=== PATIENT | female | born 1945 | race African-American/Black ===

== ENCOUNTER 2020-09-07 09:19 | Inpatient (IN) | payer MEDICARE, OTHER ==
[~2020-09-07] VITALS: Ht 167.6 cm; Wt 127.5 kg
[~2020-09-07 09:19] MED LIST: AMLODIPINE; ASACOL; ASPIRIN PO; ATORVASTATIN PO; BENTYL; CHLORTHALIDONE; CYMBALTA PO; DEXILANT; DOCUSATE; DONNATAL; FLUTICASONE; GABAPENTIN; ISOSORBIDE; LOSARTAN; MECLIZINE; METOPROLOL; NAPROXEN; OMEPRAZOLE; ONDANSETRON; PROAIR; RANITIDINE
[2020-09-07] MEDS ORDERED: HYDROCODONE/ACETAMINOPHEN 5/325MG TABLET PO STA (09:46)
[2020-09-07] MEDS ORDERED: SODIUM CHLORIDE 0.9% 1,000 ML IV ONE (10:00)
[2020-09-07 10:52] LABS: BASOPHILS % 0.4 % (0.0-2.0); EOSINOPHILS % 0.1 % (0.0-5.0); HEMATOCRIT. 35.1 % (36.0-48.0); HEMOGLOBIN. 11.2 g/dL (12.0-16.0); LYMPHOCYTES % 9.8 % (20.0-50.0); MEAN CORPUSCULAR HEMOGLOBIN 27.2 pg (28.0-32.0); MEAN CORPUSCULAR VOLUME 84.9 fL (81.0-99.0); MEAN PLATELET VOLUME 9.7 fl (7.4-10.4); MONOCYTES % 6.6 % (2.0-8.0); NEUTROPHILS % 83.1 % (40.0-76.0); PLATELET 115 x1000/uL (130-400); RED BLOOD CELL COUNT 4.13 mill/uL (4.2-5.4); RED CELL DISTRIBUTION WIDTH 18.8 % (11.6-14.6)
[2020-09-07 10:57] LABS: CHLORIDE 109 mEq/L (98-107)
[2020-09-07 11:02] LABS: INR 1.1; PROTHROMBIN TIME 11.3 sec (9.6-11.0)
[2020-09-07 11:08] LABS: CREATINE KINASE 132 IU/L (26-192)
[2020-09-07] MEDS ORDERED: GADOTERATE MEGLUMINE 5 MMOL/10 ML VIAL IV ONE (15:31)
[2020-09-07] MEDS ORDERED: CARVEDILOL 3.125 MG TABLET PO NR (16:45)
[2020-09-07] MEDS ORDERED: DEXAMETHASONE 10 MG/ML VIAL IV ONE (17:15)
[2020-09-07] MEDS ORDERED: HYDROCODONE/ACETAMINOPHEN 5/325MG TABLET PO ONE (18:30)
[2020-09-07] MEDS: MORPHINE SULFATE 2 MG/ML CPJ (NOT FOR IM USE) IV PRN (19:52)
[2020-09-07] MEDS ORDERED: MANNITOL 20% 250 ML IV NR (20:00)
[2020-09-07] MEDS ORDERED: MANNITOL 20% (20GM/100ML) BAG 500ML PREMIX IV ONE (20:00)
[2020-09-07] MEDS ORDERED: NICARDIPINE 100 MG in SODIUM CHLORIDE 0.9% 60 ML IV PRN (20:00)
[2020-09-07] MEDS: NICARDIPINE 100 MG in SODIUM CHLORIDE 0.9% 60 ML IV PRN (20:14)
[2020-09-07] MEDS: DEXT 5%/LACTATED RINGERS 1,000 ML IV SCH (20:45)
[2020-09-07] MEDS ORDERED: LEVETIRACETAM 500MG PREMIX 100 ML IV SCH (21:00)
[2020-09-08] VITALS (59 sets, daily range): BP systolic 110–164; BP diastolic 53–93
[2020-09-08] MEDS: DEXAMETHASONE 4MG/ML 1ML VIAL IV SCH ×4 (00:27→17:10)
[2020-09-08] MEDS: MORPHINE SULFATE 2 MG/ML CPJ (NOT FOR IM USE) IV PRN ×4 (00:41→18:45)
[2020-09-08] MEDS: HYDRALAZINE 20MG/ML VIAL IV PRN (10:18)
[2020-09-08] MEDS: LEVETIRACETAM 500MG PREMIX 100 ML IV SCH ×2 (11:30→20:33)
[2020-09-08 15:52] LABS: BASOPHILS % 0.2 % (0.0-2.0); HEMATOCRIT. 36.6 % (36.0-48.0); HEMOGLOBIN. 11.8 g/dL (12.0-16.0); LYMPHOCYTES % 10.3 % (20.0-50.0); MEAN CORPUSCULAR HEMOGLOBIN 27.4 pg (28.0-32.0); MEAN CORPUSCULAR VOLUME 84.9 fL (81.0-99.0); MEAN PLATELET VOLUME 10.3 fl (7.4-10.4); MONOCYTES % 1.9 % (2.0-8.0); NEUTROPHILS % 87.6 % (40.0-76.0); PLATELET 120 x1000/uL (130-400); RED BLOOD CELL COUNT 4.31 mill/uL (4.2-5.4); RED CELL DISTRIBUTION WIDTH 19.6 % (11.6-14.6)
[2020-09-08 16:04] LABS: CHLORIDE 110 mEq/L (98-107)
[2020-09-08] MEDS: NICARDIPINE 100 MG in SODIUM CHLORIDE 0.9% 60 ML IV PRN (16:06)
[2020-09-08] MEDS: DEXT 5%/LACTATED RINGERS 1,000 ML IV SCH (17:02)
[2020-09-08] MEDS ORDERED: POTASSIUM CHLORIDE 20MEQ TABLET SR PO SCH (22:30)
[2020-09-08] MEDS ORDERED: DICL100G31 TP (22:32)
[2020-09-08] MEDS ORDERED: ISOS30TA91 PO (22:32)
[2020-09-08] MEDS ORDERED: FLUT16SP15 BOTHNSTRLS (22:32)
[2020-09-08] MEDS ORDERED: PREG75CA75 PO (22:32)
[2020-09-08] MEDS ORDERED: NIFE90TA60 PO (22:32)
[2020-09-08] MEDS ORDERED: LOSA100T32 PO (22:32)
[2020-09-08] MEDS ORDERED: DULO30CA52 PO (22:32)
[2020-09-08] MEDS ORDERED: TIZA4TAB5 PO (22:32)
[2020-09-08] MEDS ORDERED: APIX5TAB PO (22:32)
[2020-09-08] MEDS ORDERED: COM10 PO (22:32)
[2020-09-08] MEDS ORDERED: ATOR-2 PO (22:32)
[2020-09-08] MEDS ORDERED: CARV3.1242 PO (22:32)
[2020-09-08] MEDS ORDERED: MIRT15TA6 PO (22:32)
[2020-09-08] MEDS ORDERED: CLON1TAB12 PO (22:32)
[2020-09-08] MEDS ORDERED: PRIL20 PO (22:32)
[2020-09-08] MEDS ORDERED: FURO20TA4 PO (22:32)
[2020-09-09] VITALS (95 sets, daily range): BP systolic 101–173; BP diastolic 53–112
[2020-09-09] MEDS: DEXAMETHASONE 4MG/ML 1ML VIAL IV SCH ×4 (00:15→17:12)
[2020-09-09] MEDS: MORPHINE SULFATE 2 MG/ML CPJ (NOT FOR IM USE) IV PRN ×5 (00:39→18:22)
[2020-09-09] MEDS: NICARDIPINE 100 MG in SODIUM CHLORIDE 0.9% 60 ML IV PRN ×3 (00:50→16:31)
[2020-09-09 06:58] LABS: HEMATOCRIT. 35.1 % (36.0-48.0); HEMOGLOBIN. 11.5 g/dL (12.0-16.0); MEAN CORPUSCULAR HEMOGLOBIN 27.2 pg (28.0-32.0); MEAN CORPUSCULAR VOLUME 83.4 fL (81.0-99.0); MEAN PLATELET VOLUME 10.3 fl (7.4-10.4); PLATELET 122 x1000/uL (130-400); RED BLOOD CELL COUNT 4.22 mill/uL (4.2-5.4); RED CELL DISTRIBUTION WIDTH 19.3 % (11.6-14.6)
[2020-09-09] MEDS: LEVETIRACETAM 500MG PREMIX 100 ML IV SCH ×2 (08:05→21:20)
[2020-09-09] MEDS: DEXT 5%/LACTATED RINGERS 1,000 ML IV SCH (08:06)
[2020-09-09] MEDS: HYDRALAZINE 20MG/ML VIAL IV PRN (09:55)
[2020-09-09 13:25] LABS: PLATELET ESTIMATE DECREASED
[2020-09-10] VITALS (96 sets, daily range): BP systolic 100–167; BP diastolic 49–87
[2020-09-10] MEDS: DEXAMETHASONE 4MG/ML 1ML VIAL IV SCH ×4 (00:13→17:23)
[2020-09-10] MEDS: NICARDIPINE 100 MG in SODIUM CHLORIDE 0.9% 60 ML IV PRN ×4 (00:14→22:41)
[2020-09-10] MEDS: DEXT 5%/LACTATED RINGERS 1,000 ML IV SCH ×2 (04:40→17:58)
[2020-09-10] MEDS: MORPHINE SULFATE 2 MG/ML CPJ (NOT FOR IM USE) IV PRN ×4 (05:42→21:39)
[2020-09-10 05:50] LABS: HEMATOCRIT. 39.3 % (36.0-48.0); HEMOGLOBIN. 12.4 g/dL (12.0-16.0); MEAN CORPUSCULAR HEMOGLOBIN 26.7 pg (28.0-32.0); MEAN CORPUSCULAR VOLUME 84.8 fL (81.0-99.0); MEAN PLATELET VOLUME 10.1 fl (7.4-10.4); PLATELET 136 x1000/uL (130-400); RED BLOOD CELL COUNT 4.63 mill/uL (4.2-5.4); RED CELL DISTRIBUTION WIDTH 19.9 % (11.6-14.6)
[2020-09-10 05:52] LABS: CHLORIDE 111 mEq/L (98-107)
[2020-09-10] MEDS: LEVETIRACETAM 500MG PREMIX 100 ML IV SCH ×2 (08:08→20:25)
[2020-09-10] MEDS: HYDRALAZINE 20MG/ML VIAL IV PRN (09:14)
[2020-09-10 12:17] LABS: PLATELET ESTIMATE NORMAL
[2020-09-10 13:10] LABS: BG BASE EXCESS -1.3 mmol/L (-2.0-2.0); BG CARBOXYHEMOGLOBIN 0.7 % (0.5-1.5); BG DEOXYHEMOGLOBIN 4.1 % (0.0-5.0); BG FRACTION INSPIRED OXYGEN 21; BG HCO3 ACT 22.5 mmol/L (22.0-26.0); BG METHEMOGLOBIN 0.2 % (0.0-1.5); BG OXYGEN SATURATION 95.9 % (92.0-98.5); BG PCO2 34.8 mmHg (35.0-45.0); BG PH 7.428 (7.350-7.450); BG SAMPLE SITE RIGHT RADIAL; BG TOTAL HEMOGLOBIN 12.7 g/dL (12.0-18.0); BG VENT MODE ROOM AIR
[2020-09-10 15:47] LABS: CLARITY URINE CLOUDY (CLEAR); COLOR URINE YELLOW (YELLOW); KETONES URINE NEGATIVE (NEGATIVE); LEUKOCYTE ESTERASE URINE 2+ (NEGATIVE); NITRITE URINE NEGATIVE (NEGATIVE); OCCULT BLOOD URINE NEGATIVE (NEGATIVE); PH URINE 8.5 (4.5-8.0); PROTEIN URINE 1+ (NEGATIVE); UROBILINOGEN URINE 0.2 E.U./dL (0.2-1.0)
[2020-09-11] VITALS (86 sets, daily range): BP systolic 112–185; BP diastolic 38–106
[2020-09-11] MEDS: DEXAMETHASONE 4MG/ML 1ML VIAL IV SCH ×5 (00:52→23:02)
[2020-09-11] MEDS: ONDANSETRON HCL 4MG/2ML INJ IV PRN (02:47)
[2020-09-11] MEDS: MORPHINE SULFATE 2 MG/ML CPJ (NOT FOR IM USE) IV PRN (02:58)
[2020-09-11] MEDS: NICARDIPINE 100 MG in SODIUM CHLORIDE 0.9% 60 ML IV PRN ×2 (05:37→16:54)
[2020-09-11 05:41] LABS: CHLORIDE 112 mEq/L (98-107)
[2020-09-11 05:51] LABS: HEMATOCRIT. 37.9 % (36.0-48.0); HEMOGLOBIN. 12.2 g/dL (12.0-16.0); MEAN CORPUSCULAR HEMOGLOBIN 27.1 pg (28.0-32.0); MEAN CORPUSCULAR VOLUME 83.7 fL (81.0-99.0); MEAN PLATELET VOLUME 9.9 fl (7.4-10.4); PLATELET 140 x1000/uL (130-400); RED BLOOD CELL COUNT 4.52 mill/uL (4.2-5.4); RED CELL DISTRIBUTION WIDTH 19.1 % (11.6-14.6)
[2020-09-11 05:52] LABS: PARTIAL THROMBOPLASTIN TIME 22.5 sec (23.4-31.0); PROTHROMBIN TIME 10.9 sec (9.6-11.0)
[2020-09-11] MEDS ORDERED: BACITRACIN 15GM TUBE TOP ONE (06:18)
[2020-09-11] MEDS ORDERED: LACTATED RINGERS 3,000 ML IV ONE (06:18)
[2020-09-11] MEDS ORDERED: SODIUM CHLORIDE 0.9% IRRIG SOL 2,000 ML IR ONE (06:18)
[2020-09-11] MEDS ORDERED: SODIUM CHLORIDE 0.9% INJ 10ML FLUSH IVF ONE (06:18)
[2020-09-11] MEDS ORDERED: BACITRACIN 50,000 UNITS/VIAL ONE (06:18)
[2020-09-11] MEDS: HYDRALAZINE 20MG/ML VIAL IV PRN ×3 (06:19→22:14)
[2020-09-11] MEDS ORDERED: THROMBIN (BOVINE) 5000 UNITS/VIAL TOP ONE (06:22)
[2020-09-11] MEDS ORDERED: ROCURONIUM BROMIDE 10MG/ML VIAL 5ML IV ONE (07:57)
[2020-09-11] MEDS ORDERED: NEOSTIGMINE METHYLSULFATE 1MG/ML 10 ML VIAL ONE (07:57)
[2020-09-11] MEDS ORDERED: FENTANYL CITRATE/PF 50MCG/ML 2ML VIAL ONE (07:57)
[2020-09-11] MEDS ORDERED: PROPOFOL 200MG/20ML VIAL IV ONE (08:00)
[2020-09-11] MEDS ORDERED: MIDAZOLAM HCL 2 MG/2 ML VIAL ONE (08:03)
[2020-09-11] MEDS: DEXT 5%/LACTATED RINGERS 1,000 ML IV SCH (08:05)
[2020-09-11] MEDS ORDERED: MANNITOL 20% 500 ML IV ONE (08:36)
[2020-09-11] MEDS ORDERED: DEXAMETHASONE 4MG/ML 1ML VIAL ONE (08:37)
[2020-09-11] MEDS ORDERED: LEVETIRACETAM 500MG PREMIX 100 ML IV ONE (08:37)
[2020-09-11] MEDS ORDERED: FENTANYL CITRATE/PF 50MCG/ML 5ML VIAL ONE (08:57)
[2020-09-11] MEDS: LEVETIRACETAM 500MG PREMIX 100 ML IV SCH ×2 (09:00→20:42)
[2020-09-11] MEDS ORDERED: HEPARIN 1000 UNITS/ML 10ML ONE (09:26)
[2020-09-11] MEDS ORDERED: SODIUM CHLORIDE 0.9% 10ML VIAL ONE ×2 (09:26→10:50)
[2020-09-11] MEDS ORDERED: HYDRALAZINE 20MG/ML VIAL ONE ×2 (09:26→10:50)
[2020-09-11] MEDS ORDERED: LABETALOL HCL 5MG/ML VIAL 20ML IV ONE ×2 (09:26→11:17)
[2020-09-11] MEDS ORDERED: CEFAZOLIN SODIUM 1000MG/VIAL ONE (09:26)
[2020-09-11] MEDS ORDERED: GLYCOPYRROLATE 0.2 MG/ML 2ML VIAL ONE (10:58)
[2020-09-11] MEDS: MORPHINE SULFATE 4 MG/ML CPJ (NOT FOR IM USE) IV PRN ×4 (11:40→23:02)
[2020-09-11] MEDS: CEFTRIAXONE 1,000 MG in DEXTROSE 5% WATER 50 ML IV SCH (12:04)
[2020-09-11] MEDS ORDERED: MORPHINE SULFATE 4 MG/ML CPJ (NOT FOR IM USE) IV PRN (13:45)
[2020-09-11] MEDS ORDERED: CEFAZOLIN SODIUM 1000MG/VIAL IV SCH (14:00)
[2020-09-11 14:08] LABS: PLATELET ESTIMATE NORMAL
[2020-09-11] MEDS ORDERED: MORPHINE SULFATE 2 MG/ML CPJ (NOT FOR IM USE) IV PRN ×2 (14:30→16:45)
[2020-09-11] MEDS ORDERED: MORPHINE SULFATE 2 MG/ML CPJ (NOT FOR IM USE) IV NR (15:00)
[2020-09-11] MEDS: CEFAZOLIN 1000MG PREMIX 50 ML IV SCH (16:57)
[2020-09-11] MEDS ORDERED: NALOXONE HCL 0.4 MG/ML 1ML VIAL IV NR (17:00)
[2020-09-11] MEDS ORDERED: NALOXONE HCL 0.4 MG/ML 1ML VIAL IV PRN (17:15)
[2020-09-11] MEDS ORDERED: HYDRALAZINE 20MG/ML VIAL IV NR (18:15)
[2020-09-12] VITALS (94 sets, daily range): BP systolic 111–173; BP diastolic 37–100
[2020-09-12] MEDS: NICARDIPINE 100 MG in SODIUM CHLORIDE 0.9% 60 ML IV PRN ×4 (00:08→21:16)
[2020-09-12] MEDS: CEFAZOLIN 1000MG PREMIX 50 ML IV SCH ×2 (00:46→09:44)
[2020-09-12] MEDS: MORPHINE SULFATE 4 MG/ML CPJ (NOT FOR IM USE) IV PRN ×7 (03:05→22:04)
[2020-09-12] MEDS: HYDRALAZINE 20MG/ML VIAL IV PRN ×5 (03:37→21:45)
[2020-09-12] MEDS: DEXT 5%/LACTATED RINGERS 1,000 ML IV SCH ×2 (04:12→17:23)
[2020-09-12] MEDS: DEXAMETHASONE 4MG/ML 1ML VIAL IV SCH ×4 (05:22→23:42)
[2020-09-12] MEDS: CEFTRIAXONE 1,000 MG in DEXTROSE 5% WATER 50 ML IV SCH (08:41)
[2020-09-12] MEDS: LEVETIRACETAM 500MG PREMIX 100 ML IV SCH ×2 (08:41→20:35)
[2020-09-12] MEDS ORDERED: NON FORMULARY PATIENT HOME MED XX ONE (13:00)
[2020-09-12] MEDS ORDERED: ENALAPRIL 1.25MG/ML VIAL 1ML IV NR (13:15)
[2020-09-12] MEDS ORDERED: CLONIDINE HCL 0.1MG/24HR PATCH TD NR (16:00)
[2020-09-12] MEDS: HYDRALAZINE HCL 50MG TABLET PO SCH (21:35)
[2020-09-13] VITALS (106 sets, daily range): BP systolic 119–200; BP diastolic 39–111
[2020-09-13] MEDS: MORPHINE SULFATE 4 MG/ML CPJ (NOT FOR IM USE) IV PRN ×9 (01:35→23:28)
[2020-09-13] MEDS: HYDRALAZINE 20MG/ML VIAL IV PRN ×4 (02:18→23:28)
[2020-09-13] MEDS: NICARDIPINE 100 MG in SODIUM CHLORIDE 0.9% 60 ML IV PRN ×3 (04:04→18:24)
[2020-09-13] MEDS: DEXAMETHASONE 4MG/ML 1ML VIAL IV SCH ×4 (05:06→23:33)
[2020-09-13] MEDS: HYDRALAZINE HCL 50MG TABLET PO SCH ×4 (05:06→21:06)
[2020-09-13 05:32] LABS: HEMATOCRIT. 31.8 % (36.0-48.0); HEMOGLOBIN. 10.1 g/dL (12.0-16.0); MEAN CORPUSCULAR HEMOGLOBIN 26.6 pg (28.0-32.0); MEAN CORPUSCULAR VOLUME 83.6 fL (81.0-99.0); MEAN PLATELET VOLUME 10.5 fl (7.4-10.4); PLATELET 150 x1000/uL (130-400)
[2020-09-13] MEDS: CEFTRIAXONE 1,000 MG in DEXTROSE 5% WATER 50 ML IV SCH (09:13)
[2020-09-13] MEDS: LEVETIRACETAM 500MG PREMIX 100 ML IV SCH ×2 (09:13→21:05)
[2020-09-13] MEDS: CLONIDINE 0.1MG TABLET PO PRN (09:34)
[2020-09-13 09:42] LABS: PLATELET ESTIMATE NORMAL
[2020-09-13] MEDS: DEXT 5%/LACTATED RINGERS 1,000 ML IV SCH (10:41)
[2020-09-13] MEDS: ONDANSETRON HCL 4MG/2ML INJ IV PRN (23:33)
[2020-09-14] VITALS (105 sets, daily range): BP systolic 78–233; BP diastolic 25–230
[2020-09-14] MEDS: NICARDIPINE 100 MG in SODIUM CHLORIDE 0.9% 60 ML IV PRN ×4 (01:22→21:33)
[2020-09-14] MEDS: CLONIDINE 0.1MG TABLET PO PRN (01:27)
[2020-09-14] MEDS: DEXT 5%/LACTATED RINGERS 1,000 ML IV SCH ×2 (01:28→18:40)
[2020-09-14] MEDS: MORPHINE SULFATE 4 MG/ML CPJ (NOT FOR IM USE) IV PRN ×9 (01:30→22:46)
[2020-09-14] MEDS: HYDRALAZINE 20MG/ML VIAL IV PRN ×3 (03:45→15:58)
[2020-09-14] MEDS: DEXAMETHASONE 4MG/ML 1ML VIAL IV SCH ×3 (05:42→17:45)
[2020-09-14] MEDS: HYDRALAZINE HCL 50MG TABLET PO SCH ×3 (05:43→22:08)
[2020-09-14] MEDS: CEFTRIAXONE 1,000 MG in DEXTROSE 5% WATER 50 ML IV SCH (08:06)
[2020-09-14] MEDS: LEVETIRACETAM 500MG PREMIX 100 ML IV SCH ×2 (08:07→22:08)
[2020-09-14] MEDS: LOSARTAN POTASSIUM 50 MG TABLET PO SCH ×2 (09:29→22:08)
[2020-09-14 20:34] LABS: HEMATOCRIT. 31.1 % (36.0-48.0); HEMOGLOBIN. 9.8 g/dL (12.0-16.0); MEAN CORPUSCULAR HEMOGLOBIN 26.3 pg (28.0-32.0); MEAN CORPUSCULAR VOLUME 83.8 fL (81.0-99.0); MEAN PLATELET VOLUME 9.9 fl (7.4-10.4); PLATELET 112 x1000/uL (130-400); RED BLOOD CELL COUNT 3.71 mill/uL (4.2-5.4); RED CELL DISTRIBUTION WIDTH 19.8 % (11.6-14.6)
[2020-09-14 20:56] LABS: CHLORIDE 110 mEq/L (98-107)
[2020-09-14 22:31] LABS: PLATELET ESTIMATE DECREASED
[2020-09-15] VITALS (103 sets, daily range): BP systolic 74–215; BP diastolic 28–104
[2020-09-15] MEDS: DEXAMETHASONE 4MG/ML 1ML VIAL IV SCH ×4 (00:22→18:14)
[2020-09-15] MEDS: MORPHINE SULFATE 4 MG/ML CPJ (NOT FOR IM USE) IV PRN ×9 (01:30→22:34)
[2020-09-15] MEDS: CLONIDINE 0.1MG TABLET PO PRN (04:05)
[2020-09-15] MEDS: NICARDIPINE 100 MG in SODIUM CHLORIDE 0.9% 60 ML IV PRN ×3 (04:12→18:14)
[2020-09-15 05:54] LABS: HEMATOCRIT. 31.7 % (36.0-48.0); HEMOGLOBIN. 10.1 g/dL (12.0-16.0); MEAN CORPUSCULAR HEMOGLOBIN 26.7 pg (28.0-32.0); MEAN CORPUSCULAR VOLUME 83.6 fL (81.0-99.0); MEAN PLATELET VOLUME 10.3 fl (7.4-10.4); PLATELET 116 x1000/uL (130-400); RED CELL DISTRIBUTION WIDTH 19.4 % (11.6-14.6)
[2020-09-15 06:22] LABS: CHLORIDE 109 mEq/L (98-107)
[2020-09-15] MEDS: HYDRALAZINE HCL 50MG TABLET PO SCH (07:23)
[2020-09-15] MEDS: CEFTRIAXONE 1,000 MG in DEXTROSE 5% WATER 50 ML IV SCH (08:19)
[2020-09-15] MEDS: NIFEDIPINE XL 90MG TAB PO SCH (08:20)
[2020-09-15] MEDS: LOSARTAN POTASSIUM 50 MG TABLET PO SCH ×2 (08:20→20:20)
[2020-09-15] MEDS: LEVETIRACETAM 500MG PREMIX 100 ML IV SCH ×2 (09:57→20:20)
[2020-09-15] MEDS: HYDRALAZINE 20MG/ML VIAL IV PRN ×2 (10:26→18:13)
[2020-09-15] MEDS: DEXT 5%/LACTATED RINGERS 1,000 ML IV SCH (11:06)
[2020-09-15 11:42] LABS: NUCLEATED RED BLOOD CELLS 2 /100 WBC; PLATELET ESTIMATE DECREASED
[2020-09-15] MEDS ORDERED: CLONIDINE 0.1MG TABLET PO PRN (12:00)
[2020-09-15] MEDS: HYDRALAZINE HCL 100MG TABLET PO SCH ×2 (14:30→20:52)
[2020-09-15] MEDS: CLONIDINE 0.1MG TABLET PO SCH ×2 (14:30→20:52)
[2020-09-15] MEDS: LACTULOSE 20G/30ML UDC PO SCH (20:52)
[2020-09-16] VITALS (103 sets, daily range): BP systolic 63–186; BP diastolic 42–102
[2020-09-16] MEDS: DEXAMETHASONE 4MG/ML 1ML VIAL IV SCH ×4 (01:05→17:32)
[2020-09-16] MEDS: NICARDIPINE 100 MG in SODIUM CHLORIDE 0.9% 60 ML IV PRN ×3 (01:33→18:54)
[2020-09-16] MEDS: MORPHINE SULFATE 4 MG/ML CPJ (NOT FOR IM USE) IV PRN ×6 (03:44→15:35)
[2020-09-16] MEDS: DEXT 5%/LACTATED RINGERS 1,000 ML IV SCH ×2 (03:44→21:21)
[2020-09-16] MEDS: HYDRALAZINE 20MG/ML VIAL IV PRN ×2 (04:13→09:37)
[2020-09-16] MEDS: CLONIDINE 0.1MG TABLET PO SCH (05:34)
[2020-09-16] MEDS: HYDRALAZINE HCL 100MG TABLET PO SCH ×3 (05:34→21:20)
[2020-09-16] MEDS: LACTULOSE 20G/30ML UDC PO SCH ×3 (05:34→21:19)
[2020-09-16 05:51] LABS: HEMATOCRIT. 32.7 % (36.0-48.0); HEMOGLOBIN. 10.6 g/dL (12.0-16.0); MEAN CORPUSCULAR HEMOGLOBIN 26.8 pg (28.0-32.0); MEAN CORPUSCULAR VOLUME 83.2 fL (81.0-99.0); MEAN PLATELET VOLUME 10.4 fl (7.4-10.4); PLATELET 122 x1000/uL (130-400); RED BLOOD CELL COUNT 3.94 mill/uL (4.2-5.4); RED CELL DISTRIBUTION WIDTH 18.8 % (11.6-14.6)
[2020-09-16 06:07] LABS: CHLORIDE 106 mEq/L (98-107)
[2020-09-16] MEDS: LEVETIRACETAM 500MG PREMIX 100 ML IV SCH ×2 (08:52→21:20)
[2020-09-16] MEDS: NIFEDIPINE XL 90MG TAB PO SCH (08:52)
[2020-09-16] MEDS: LOSARTAN POTASSIUM 50 MG TABLET PO SCH ×2 (08:53→21:20)
[2020-09-16 12:15] LABS: NUCLEATED RED BLOOD CELLS 1 /100 WBC; PLATELET ESTIMATE SLIGHTLY DECREASED
[2020-09-16] MEDS: CLONIDINE 0.2MG TABLET PO SCH ×2 (13:54→21:20)
[2020-09-16] MEDS ORDERED: MAGNESIUM CITRATE 300ML SOLUTION PO SCH (14:00)
[2020-09-16] MEDS ORDERED: MORPHINE SULFATE 4 MG/ML CPJ (NOT FOR IM USE) IV PRN (15:15)
[2020-09-16] MEDS ORDERED: HYDROCODONE/ACETAMINOPHEN 10/325MG TABLET PO PRN (16:30)
[2020-09-16] MEDS: BISACODYL 10MG SUPP PR PRN (17:59)
[2020-09-16] MEDS: PREGABALIN 75MG CAPSULE PO SCH (21:20)
[2020-09-17] VITALS (99 sets, daily range): BP systolic 109–174; BP diastolic 42–122
[2020-09-17] MEDS: DEXAMETHASONE 4MG/ML 1ML VIAL IV SCH ×4 (00:10→17:48)
[2020-09-17] MEDS: MORPHINE SULFATE 4 MG/ML CPJ (NOT FOR IM USE) IV PRN ×5 (05:07→21:18)
[2020-09-17] MEDS: LACTULOSE 20G/30ML UDC PO SCH ×3 (05:13→21:15)
[2020-09-17] MEDS: HYDRALAZINE HCL 100MG TABLET PO SCH ×3 (05:16→21:15)
[2020-09-17] MEDS: CLONIDINE 0.2MG TABLET PO SCH ×3 (05:17→21:15)
[2020-09-17 05:18] LABS: CHLORIDE 104 mEq/L (98-107)
[2020-09-17 05:20] LABS: HEMATOCRIT. 31.8 % (36.0-48.0); HEMOGLOBIN. 9.9 g/dL (12.0-16.0); MEAN CORPUSCULAR VOLUME 83.3 fL (81.0-99.0); MEAN PLATELET VOLUME 10.7 fl (7.4-10.4); PLATELET 94 x1000/uL (130-400); RED BLOOD CELL COUNT 3.82 mill/uL (4.2-5.4); RED CELL DISTRIBUTION WIDTH 18.7 % (11.6-14.6)
[2020-09-17] MEDS: NICARDIPINE 100 MG in SODIUM CHLORIDE 0.9% 60 ML IV PRN (05:22)
[2020-09-17] MEDS: LOSARTAN POTASSIUM 50 MG TABLET PO SCH ×2 (08:22→21:15)
[2020-09-17] MEDS: LEVETIRACETAM 500MG PREMIX 100 ML IV SCH ×2 (08:22→21:15)
[2020-09-17] MEDS: PREGABALIN 75MG CAPSULE PO SCH ×2 (08:22→21:17)
[2020-09-17] MEDS: NIFEDIPINE XL 90MG TAB PO SCH (08:23)
[2020-09-17 10:03] LABS: PLATELET ESTIMATE DECREASED
[2020-09-17] MEDS: DEXT 5%/LACTATED RINGERS 1,000 ML IV SCH (13:42)
[2020-09-17] MEDS: BISACODYL 10MG SUPP PR PRN (18:48)
[2020-09-18] VITALS (97 sets, daily range): BP systolic 110–183; BP diastolic 43–97
[2020-09-18] MEDS: DEXAMETHASONE 4MG/ML 1ML VIAL IV SCH ×4 (00:12→17:43)
[2020-09-18] MEDS: MORPHINE SULFATE 4 MG/ML CPJ (NOT FOR IM USE) IV PRN ×4 (01:18→18:22)
[2020-09-18 05:38] LABS: HEMOGLOBIN. 10.5 g/dL (12.0-16.0); MEAN CORPUSCULAR VOLUME 82.6 fL (81.0-99.0); MEAN PLATELET VOLUME 10.9 fl (7.4-10.4); PLATELET 92 x1000/uL (130-400); RED BLOOD CELL COUNT 3.88 mill/uL (4.2-5.4); RED CELL DISTRIBUTION WIDTH 18.2 % (11.6-14.6)
[2020-09-18 05:40] LABS: CHLORIDE 105 mEq/L (98-107)
[2020-09-18] MEDS: CLONIDINE 0.2MG TABLET PO SCH ×2 (05:50→13:08)
[2020-09-18] MEDS: HYDRALAZINE HCL 100MG TABLET PO SCH ×3 (05:50→21:42)
[2020-09-18] MEDS: LACTULOSE 20G/30ML UDC PO SCH ×3 (05:51→21:42)
[2020-09-18] MEDS: DEXT 5%/LACTATED RINGERS 1,000 ML IV SCH (05:52)
[2020-09-18 06:52] LABS: PLATELET ESTIMATE DECREASED
[2020-09-18] MEDS: LOSARTAN POTASSIUM 50 MG TABLET PO SCH ×2 (09:04→21:42)
[2020-09-18] MEDS: NIFEDIPINE XL 90MG TAB PO SCH (09:04)
[2020-09-18] MEDS: PREGABALIN 75MG CAPSULE PO SCH ×2 (09:04→21:42)
[2020-09-18] MEDS: LEVETIRACETAM 500MG PREMIX 100 ML IV SCH ×2 (09:04→21:42)
[2020-09-18] MEDS: NICARDIPINE 100 MG in SODIUM CHLORIDE 0.9% 60 ML IV PRN (12:38)
[2020-09-18] MEDS: HYDRALAZINE 20MG/ML VIAL IV PRN (18:21)
[2020-09-18] MEDS: CLONIDINE 0.1MG TABLET PO SCH (21:42)
[2020-09-19] VITALS (31 sets, daily range): BP systolic 124–187; BP diastolic 49–84
[2020-09-19] MEDS: DEXAMETHASONE 4MG/ML 1ML VIAL IV SCH ×5 (00:42→23:42)
[2020-09-19] MEDS: HYDRALAZINE 20MG/ML VIAL IV PRN ×2 (00:57→10:59)
[2020-09-19] MEDS: MORPHINE SULFATE 4 MG/ML CPJ (NOT FOR IM USE) IV PRN ×7 (00:57→22:48)
[2020-09-19] MEDS: LACTULOSE 20G/30ML UDC PO SCH ×3 (05:53→21:24)
[2020-09-19] MEDS: CLONIDINE 0.1MG TABLET PO SCH ×3 (05:57→21:24)
[2020-09-19] MEDS: HYDRALAZINE HCL 100MG TABLET PO SCH ×3 (05:57→21:24)
[2020-09-19] MEDS: LEVETIRACETAM 500MG PREMIX 100 ML IV SCH ×2 (08:23→21:23)
[2020-09-19] MEDS: LOSARTAN POTASSIUM 50 MG TABLET PO SCH ×2 (08:24→21:23)
[2020-09-19] MEDS: NIFEDIPINE XL 90MG TAB PO SCH (08:24)
[2020-09-19] MEDS: PREGABALIN 75MG CAPSULE PO SCH ×2 (08:24→21:23)
[2020-09-19] MEDS ORDERED: NA PHOS,M-B/NA PHOS,DI-BA ENEMA 118ML PR NR (20:00)
[2020-09-19] MEDS ORDERED: BISACODYL 10MG SUPP PR NR (20:00)
[2020-09-19] MEDS: CEFAZOLIN 1000MG PREMIX 50 ML IV SCH (21:53)
[2020-09-20] VITALS: BP 132/88
[2020-09-20] MEDS: MORPHINE SULFATE 4 MG/ML CPJ (NOT FOR IM USE) IV PRN ×5 (02:00→16:28)
[2020-09-20 04:00] VITALS: BP 150/59
[2020-09-20] MEDS: DEXAMETHASONE 4MG/ML 1ML VIAL IV SCH ×3 (05:33→16:27)
[2020-09-20] MEDS: LACTULOSE 20G/30ML UDC PO SCH ×3 (05:33→21:40)
[2020-09-20] MEDS: CEFAZOLIN 1000MG PREMIX 50 ML IV SCH ×3 (05:33→20:36)
[2020-09-20] MEDS: HYDRALAZINE HCL 100MG TABLET PO SCH ×3 (05:34→21:40)
[2020-09-20] MEDS: CLONIDINE 0.1MG TABLET PO SCH ×2 (05:34→15:10)
[2020-09-20 07:43] LABS: CHLORIDE 108 mEq/L (98-107)
[2020-09-20 07:44] LABS: HEMATOCRIT. 28.8 % (36.0-48.0); MEAN CORPUSCULAR HEMOGLOBIN 25.9 pg (28.0-32.0); MEAN CORPUSCULAR VOLUME 82.8 fL (81.0-99.0); MEAN PLATELET VOLUME 10.4 fl (7.4-10.4); PLATELET 68 x1000/uL (130-400); RED BLOOD CELL COUNT 3.47 mill/uL (4.2-5.4); RED CELL DISTRIBUTION WIDTH 18.3 % (11.6-14.6)
[2020-09-20] MEDS: LOSARTAN POTASSIUM 50 MG TABLET PO SCH ×2 (08:50→21:40)
[2020-09-20] MEDS: NIFEDIPINE XL 90MG TAB PO SCH (08:50)
[2020-09-20] MEDS: PREGABALIN 75MG CAPSULE PO SCH ×2 (08:50→21:39)
[2020-09-20] MEDS: LEVETIRACETAM 500MG PREMIX 100 ML IV SCH ×2 (08:50→21:40)
[2020-09-20] MEDS ORDERED: MINOXIDIL 2.5MG TABLET PO SCH (09:00)
[2020-09-20 20:00] VITALS: BP 133/62
[2020-09-20] MEDS: CLONIDINE 0.3MG TABLET PO SCH (21:44)
[2020-09-20 22:30] LABS: PLATELET ESTIMATE DECREASED
[2020-09-21] VITALS: BP 129/66
[2020-09-21] MEDS: DEXAMETHASONE 4MG/ML 1ML VIAL IV SCH ×3 (00:24→12:35)
[2020-09-21] MEDS: MORPHINE SULFATE 4 MG/ML CPJ (NOT FOR IM USE) IV PRN ×2 (02:11→14:46)
[2020-09-21 04:00] VITALS: BP 149/60
[2020-09-21] MEDS: CLONIDINE 0.3MG TABLET PO SCH ×4 (05:29→22:00)
[2020-09-21] MEDS: LACTULOSE 20G/30ML UDC PO SCH ×3 (05:29→22:05)
[2020-09-21] MEDS: CEFAZOLIN 1000MG PREMIX 50 ML IV SCH ×3 (05:29→22:05)
[2020-09-21] MEDS: HYDRALAZINE HCL 100MG TABLET PO SCH ×3 (05:30→22:04)
[2020-09-21 08:00] VITALS: BP 131/90
[2020-09-21] MEDS: LEVETIRACETAM 500MG PREMIX 100 ML IV SCH (08:28)
[2020-09-21] MEDS: MINOXIDIL 2.5MG TABLET PO SCH (08:29)
[2020-09-21] MEDS: NIFEDIPINE XL 90MG TAB PO SCH (08:29)
[2020-09-21] MEDS: LOSARTAN POTASSIUM 50 MG TABLET PO SCH ×2 (08:29→21:00)
[2020-09-21] MEDS: PREGABALIN 75MG CAPSULE PO SCH ×2 (08:31→22:04)
[2020-09-21 12:00] VITALS: BP 153/58
[2020-09-21 16:00] VITALS: BP 149/67
[2020-09-21] MEDS ORDERED: DEXAMETHASONE 4MG TABLET PO SCH (18:00)
[2020-09-21] MEDS ORDERED: PREG75CA PO (18:21)
[2020-09-21] MEDS ORDERED: DEX4 PO (18:21)
[2020-09-21] MEDS ORDERED: MINO2.5T19 PO (18:21)
[2020-09-21] MEDS ORDERED: IPRA3AMP9 HHN (18:21)
[2020-09-21] MEDS ORDERED: LACT10SO7 PO (18:21)
[2020-09-21] MEDS ORDERED: NIFE90TA60 PO (18:21)
[2020-09-21] MEDS ORDERED: LOSA50TA3 PO (18:21)
[2020-09-21] MEDS ORDERED: KEPPSOL PO (18:21)
[2020-09-21] MEDS ORDERED: CLON0.3T PO (18:21)
[2020-09-21] MEDS ORDERED: HYDR100T26 PO (18:21)
[2020-09-21 19:50] LABS: HEMATOCRIT. 26.8 % (36.0-48.0); HEMOGLOBIN. 8.5 g/dL (12.0-16.0); MEAN CORPUSCULAR HEMOGLOBIN 26.6 pg (28.0-32.0); MEAN CORPUSCULAR VOLUME 83.5 fL (81.0-99.0); MEAN PLATELET VOLUME 10.8 fl (7.4-10.4); PLATELET 64 x1000/uL (130-400); RED BLOOD CELL COUNT 3.21 mill/uL (4.2-5.4); RED CELL DISTRIBUTION WIDTH 18.6 % (11.6-14.6)
[2020-09-21 19:55] LABS: CHLORIDE 108 mEq/L (98-107)
[2020-09-21 20:00] VITALS: BP_SYST 112; BP_SYST 118; BP_DIAS 42; BP_DIAS 58
[2020-09-21 21:20] LABS: PLATELET ESTIMATE DECREASED
[2020-09-21] MEDS ORDERED: FUROSEMIDE 40MG/4ML VIAL IVP NR (22:00)
[2020-09-21] MEDS ORDERED: HYDROCODONE/ACETAMINOPHEN 10/325MG TABLET PO PRN (22:00)
[2020-09-21] MEDS: ACETAMINOPHEN 650MG/20.3ML UDC PO PRN (22:05)
[2020-09-21] MEDS: LEVETIRACETAM 500MG/5ML CUP PO SCH (22:17)
[2020-09-22] VITALS (69 sets, daily range): BP systolic 40–209; BP diastolic 16–97
[2020-09-22] MEDS: ALBUTEROL (0.083%) 2.5MG/3ML NEB HHN SCH ×2 (01:08→20:26)
[2020-09-22] MEDS ORDERED: ETOMIDATE 2MG/ML 10ML VIAL IV ONE (04:55)
[2020-09-22] MEDS ORDERED: CALCIUM CHLORIDE 1GM/10ML SYR IV ONE ×2 (04:55→05:35)
[2020-09-22] MEDS ORDERED: EPINEPHRINE 0.1MG/ML (1:10,000) 10ML SYR ONE ×2 (04:55→05:35)
[2020-09-22] MEDS ORDERED: SODIUM BICARBONATE 8.4% 1 MEQ/ML 50ML SYR IV ONE ×3 (04:55→12:45)
[2020-09-22] MEDS ORDERED: SUCCINYLCHOLINE CHLORIDE 200MG/10ML IV ONE (04:55)
[2020-09-22] MEDS ORDERED: NON FORMULARY PATIENT HOME MED XX STA (05:07)
[2020-09-22 05:53] LABS: BG BASE EXCESS -4.9 mmol/L (-2.0-2.0); BG CARBOXYHEMOGLOBIN 0.1 % (0.5-1.5); BG DEOXYHEMOGLOBIN 4.9 % (0.0-5.0); BG FRACTION INSPIRED OXYGEN 100; BG HCO3 ACT 23.7 mmol/L (22.0-26.0); BG PCO2 69.5 mmHg (35.0-45.0); BG PH 7.151 (7.350-7.450); BG PO2 115.1 mmHg (75.0-100.0); BG TOTAL HEMOGLOBIN 6.9 g/dL (12.0-18.0); BG VENT MODE VENT - AC
[2020-09-22] MEDS: PHENYLEPHRINE 100 MG in DEXT 5% WATER 240 ML IV PRN ×5 (06:00→18:55)
[2020-09-22] MEDS: HYDRALAZINE HCL 100MG TABLET PO SCH ×3 (06:00→21:09)
[2020-09-22] MEDS: LACTULOSE 20G/30ML UDC PO SCH ×3 (06:00→21:20)
[2020-09-22] MEDS: CLONIDINE 0.3MG TABLET PO SCH ×3 (06:00→21:09)
[2020-09-22] MEDS: DEXAMETHASONE 4MG TABLET PO SCH ×3 (06:00→21:20)
[2020-09-22] MEDS ORDERED: SODIUM BICARBONATE 8.4% 1 MEQ/ML 50ML SYR IV SCH (06:15)
[2020-09-22 06:19] LABS: HEMOGLOBIN. 7.3 g/dL (12.0-16.0); MEAN CORPUSCULAR VOLUME 86.1 fL (81.0-99.0); MEAN PLATELET VOLUME 10.7 fl (7.4-10.4); PLATELET 65 x1000/uL (130-400); RED BLOOD CELL COUNT 2.79 mill/uL (4.2-5.4); RED CELL DISTRIBUTION WIDTH 19.2 % (11.6-14.6)
[2020-09-22 06:28] LABS: INR 1.2; PROTHROMBIN TIME 12.6 sec (9.6-11.0)
[2020-09-22] MEDS ORDERED: CEFEPIME 1,000 MG in DEXTROSE 5% WATER 50 ML IV SCH (06:30)
[2020-09-22 07:40] LABS: CHLORIDE 110 mEq/L (98-107)
[2020-09-22] MEDS ORDERED: DEXT 5% IV SCH (08:00)
[2020-09-22] MEDS ORDERED: VANCOMYCIN HCL IV SCH (08:00)
[2020-09-22] MEDS ORDERED: WATER IV SCH (08:00)
[2020-09-22] MEDS: NOREPINEPHRINE 8 MG in SODIUM CHLORIDE 0.9% 242 ML IV PRN ×2 (08:05→10:28)
[2020-09-22] MEDS: IPRATROPIUM/ALBUTEROL 0.5-3(2.5)MG/3ML NEB HHN PRN ×2 (08:17→14:19)
[2020-09-22] MEDS: MINOXIDIL 2.5MG TABLET PO SCH (09:00)
[2020-09-22] MEDS: NIFEDIPINE XL 90MG TAB PO SCH (09:00)
[2020-09-22] MEDS: LOSARTAN POTASSIUM 50 MG TABLET PO SCH ×2 (09:00→20:13)
[2020-09-22 10:05] LABS: BG BASE EXCESS -11.1 mmol/L (-2.0-2.0); BG CARBOXYHEMOGLOBIN 0.2 % (0.5-1.5); BG DEOXYHEMOGLOBIN 3.6 % (0.0-5.0); BG FRACTION INSPIRED OXYGEN 100; BG HCO3 ACT 17.6 mmol/L (22.0-26.0); BG METHEMOGLOBIN 0.6 % (0.0-1.5); BG OXYGEN SATURATION 96.4 % (92.0-98.5); BG OXYHEMOGLOBIN 95.6 % (94.0-97.0); BG PCO2 52.7 mmHg (35.0-45.0); BG PH 7.141 (7.350-7.450); BG PO2 130.4 mmHg (75.0-100.0); BG SAMPLE SITE RIGHT RADIAL; BG TOTAL HEMOGLOBIN 10.1 g/dL (12.0-18.0); BG VENT MODE VENT - AC
[2020-09-22] MEDS: LEVETIRACETAM 500MG/5ML CUP PO SCH (10:25)
[2020-09-22] MEDS: PREGABALIN 75MG CAPSULE PO SCH ×2 (10:25→21:20)
[2020-09-22] MEDS ORDERED: SODIUM BICARBONATE 8.4% 1 MEQ/ML 50ML SYR IV NR ×2 (11:00→14:00)
[2020-09-22 11:10] LABS: CLARITY URINE CLOUDY (CLEAR); COLOR URINE YELLOW (YELLOW); KETONES URINE NEGATIVE (NEGATIVE); LEUKOCYTE ESTERASE URINE NEGATIVE (NEGATIVE); NITRITE URINE NEGATIVE (NEGATIVE); OCCULT BLOOD URINE NEGATIVE (NEGATIVE); PROTEIN URINE NEGATIVE (NEGATIVE); SPECIFIC GRAVITY URINE 1.018 (1.005-1.030); UROBILINOGEN URINE 0.2 E.U./dL (0.2-1.0)
[2020-09-22] MEDS: PANTOPRAZOLE 80 MG in SODIUM CHLORIDE 0.9% 100 ML IV SCH ×2 (11:17→19:53)
[2020-09-22] MEDS ORDERED: SODIUM BICARBONATE 100 MEQ in SODIUM CHLORIDE 0.45% 1,000 ML IV SCH (12:00)
[2020-09-22] MEDS ORDERED: ALBUMIN HUMAN 25GM/100ML (25%) IV ONE (12:30)
[2020-09-22 13:01] LABS: PLATELET ESTIMATE DECREASED
[2020-09-22] MEDS: LEVETIRACETAM 500MG PREMIX 100 ML IV SCH ×2 (13:22→21:20)
[2020-09-22 13:26] LABS: PHOSPHORUS 8.2 mg/dL (2.5-4.9)
[2020-09-22] MEDS: NOREPINEPHRINE 32 MG in DEXT 5% WATER 218 ML IV PRN ×2 (13:36→18:54)
[2020-09-22] MEDS: SODIUM BICARBONATE 150 MEQ in DEXTROSE 5% WATER 1,000 ML IV SCH (13:46)
[2020-09-22 15:46] LABS: HEMATOCRIT. 21.6 % (36.0-48.0); HEMOGLOBIN. 7.3 g/dL (12.0-16.0); MEAN CORPUSCULAR HEMOGLOBIN 28.6 pg (28.0-32.0); MEAN CORPUSCULAR VOLUME 84.5 fL (81.0-99.0); MEAN PLATELET VOLUME 9.7 fl (7.4-10.4); PLATELET 57 x1000/uL (130-400); RED BLOOD CELL COUNT 2.56 mill/uL (4.2-5.4); RED CELL DISTRIBUTION WIDTH 17.9 % (11.6-14.6)
[2020-09-22] MEDS ORDERED: ALBUMIN HUMAN 25GM/100ML (25%) IV NR (17:00)
[2020-09-22 17:20] LABS: PLATELET ESTIMATE DECREASED
[2020-09-22] MEDS: CEFEPIME 1,000 MG in DEXTROSE 5% WATER 50 ML IV SCH (19:48)
[2020-09-22] MEDS ORDERED: SODIUM POLYSTYRENE SULFONATE 15 G/60 ML BOT PO NR (21:15)
[2020-09-23] VITALS (98 sets, daily range): BP systolic 62–197; BP diastolic 31–119
[2020-09-23] MEDS: ALBUTEROL (0.083%) 2.5MG/3ML NEB HHN SCH ×2 (00:25→20:43)
[2020-09-23] MEDS: PHENYLEPHRINE 100 MG in DEXT 5% WATER 240 ML IV PRN ×5 (01:29→22:54)
[2020-09-23] MEDS: SODIUM BICARBONATE 150 MEQ in DEXTROSE 5% WATER 1,000 ML IV SCH ×2 (02:08→13:37)
[2020-09-23] MEDS: NOREPINEPHRINE 32 MG in DEXT 5% WATER 218 ML IV PRN ×3 (02:50→13:40)
[2020-09-23 05:46] LABS: MEAN CORPUSCULAR HEMOGLOBIN 27.6 pg (28.0-32.0); MEAN CORPUSCULAR VOLUME 84.8 fL (81.0-99.0); MEAN PLATELET VOLUME 9.2 fl (7.4-10.4); RED BLOOD CELL COUNT 2.16 mill/uL (4.2-5.4); RED CELL DISTRIBUTION WIDTH 17.5 % (11.6-14.6)
[2020-09-23] MEDS: CLONIDINE 0.3MG TABLET PO SCH ×3 (05:48→21:09)
[2020-09-23] MEDS: HYDRALAZINE HCL 100MG TABLET PO SCH ×3 (05:48→21:09)
[2020-09-23] MEDS: DEXAMETHASONE 4MG TABLET PO SCH ×2 (05:53→14:14)
[2020-09-23] MEDS: LACTULOSE 20G/30ML UDC PO SCH ×3 (05:53→21:07)
[2020-09-23 05:55] LABS: CHLORIDE 105 mEq/L (98-107)
[2020-09-23 06:06] LABS: PHOSPHORUS 6.3 mg/dL (2.5-4.9)
[2020-09-23] MEDS: PANTOPRAZOLE 80 MG in SODIUM CHLORIDE 0.9% 100 ML IV SCH ×2 (06:16→18:18)
[2020-09-23 06:20] LABS: CREATINE KINASE 1631 IU/L (26-192)
[2020-09-23] MEDS: EPINEPHRINE 5 MG in SODIUM CHLORIDE 0.9% 250 ML IV PRN ×4 (06:37→14:36)
[2020-09-23 06:53] LABS: HEMATOCRIT. 18.3 % (36.0-48.0)
[2020-09-23 06:55] LABS: PLATELET 26 x1000/uL (130-400)
[2020-09-23] MEDS: IPRATROPIUM/ALBUTEROL 0.5-3(2.5)MG/3ML NEB HHN PRN ×2 (08:03→13:56)
[2020-09-23] MEDS: CEFEPIME 1,000 MG in DEXTROSE 5% WATER 50 ML IV SCH ×2 (08:41→21:07)
[2020-09-23] MEDS: LEVETIRACETAM 500MG PREMIX 100 ML IV SCH ×2 (08:42→21:08)
[2020-09-23] MEDS: PREGABALIN 75MG CAPSULE PO SCH ×2 (08:42→21:00)
[2020-09-23] MEDS: MINOXIDIL 2.5MG TABLET PO SCH (08:42)
[2020-09-23] MEDS: LOSARTAN POTASSIUM 50 MG TABLET PO SCH ×2 (08:42→21:00)
[2020-09-23] MEDS: NIFEDIPINE XL 90MG TAB PO SCH (08:43)
[2020-09-23] MEDS ORDERED: VASOPRESSIN 20 UNIT in SODIUM CHLORIDE 0.9% 99 ML IV PRN (09:00)
[2020-09-23 09:30] LABS: NUCLEATED RED BLOOD CELLS 1 /100 WBC
[2020-09-23 09:31] LABS: PLATELET ESTIMATE MARKEDLY DECREASED
[2020-09-23 09:42] LABS: BG BASE EXCESS 2.1 mmol/L (-2.0-2.0); BG CARBOXYHEMOGLOBIN 0.7 % (0.5-1.5); BG DEOXYHEMOGLOBIN 1.9 % (0.0-5.0); BG FRACTION INSPIRED OXYGEN 100; BG HCO3 ACT 26.4 mmol/L (22.0-26.0); BG METHEMOGLOBIN 0.7 % (0.0-1.5); BG OXYGEN SATURATION 98.1 % (92.0-98.5); BG OXYHEMOGLOBIN 96.7 % (94.0-97.0); BG PCO2 39.4 mmHg (35.0-45.0); BG PH 7.444 (7.350-7.450); BG PO2 149.1 mmHg (75.0-100.0); BG SAMPLE SITE RIGHT RADIAL; BG TOTAL HEMOGLOBIN 5.7 g/dL (12.0-18.0); BG VENT MODE VENT - AC
[2020-09-23] MEDS ORDERED: LIDOCAINE HCL 1% 20ML VIAL (Pyxis) INJ ONE (09:53)
[2020-09-23] MEDS ORDERED: VANCOMYCIN 1 G PREMIX 200 ML IV NR (12:00)
[2020-09-23 16:44] LABS: TOTAL IRON BINDING CAPACITY 108 ug/dL (250-450)
[2020-09-23 17:56] LABS: FOLIC ACID (FOLATE) SERUM > 20.00 ng/mL (>5.38); VITAMIN B12 SERUM > 2000.0 pg/mL (211-911)
[2020-09-23 19:46] LABS: HEMATOCRIT 21.4 % (36.0-48.0); MEAN CORPUSCULAR HEMOGLOBIN 28.3 pg (28.0-32.0); MEAN CORPUSCULAR VOLUME 86.7 fL (81.0-99.0); RED BLOOD CELL COUNT 2.47 mill/uL (4.2-5.4)
[2020-09-23 19:53] LABS: PLATELET 17 x1000/uL (130-400)
[2020-09-23] MEDS ORDERED: PROPOFOL 10MG/ML 100ML 100 ML IV PRN (20:15)
[2020-09-23] MEDS ORDERED: FENTANYL CITRATE/PF 2,500 MCG in SODIUM CHLORIDE 0.9% 200 ML IV PRN (21:00)
[2020-09-23] MEDS: DEXAMETHASONE 4MG/ML 1ML VIAL IV SCH (21:07)
[2020-09-24] VITALS (78 sets, daily range): BP systolic -5–130; BP diastolic -5–70
[2020-09-24] MEDS: PHENYLEPHRINE 100 MG in DEXT 5% WATER 240 ML IV PRN ×5 (00:07→19:36)
[2020-09-24] MEDS: SODIUM BICARBONATE 150 MEQ in DEXTROSE 5% WATER 1,000 ML IV SCH (02:35)
[2020-09-24] MEDS: ALBUTEROL (0.083%) 2.5MG/3ML NEB HHN SCH ×4 (03:04→20:24)
[2020-09-24] MEDS: PANTOPRAZOLE 80 MG in SODIUM CHLORIDE 0.9% 100 ML IV SCH ×2 (05:28→16:42)
[2020-09-24] MEDS: HYDRALAZINE HCL 100MG TABLET PO SCH (05:30)
[2020-09-24] MEDS: CLONIDINE 0.3MG TABLET PO SCH ×3 (05:30→20:50)
[2020-09-24] MEDS: LACTULOSE 20G/30ML UDC PO SCH (05:31)
[2020-09-24 07:22] LABS: HEMATOCRIT. 29.9 % (36.0-48.0); HEMOGLOBIN. 10.2 g/dL (12.0-16.0); MEAN CORPUSCULAR HEMOGLOBIN 29.5 pg (28.0-32.0); MEAN CORPUSCULAR VOLUME 86.9 fL (81.0-99.0); MEAN PLATELET VOLUME 9.3 fl (7.4-10.4); PLATELET 67 x1000/uL (130-400); RED BLOOD CELL COUNT 3.45 mill/uL (4.2-5.4); RED CELL DISTRIBUTION WIDTH 15.1 % (11.6-14.6)
[2020-09-24 07:51] LABS: PHOSPHORUS 5.8 mg/dL (2.5-4.9)
[2020-09-24 08:01] LABS: FERRITIN 11149 ng/mL (10-291)
[2020-09-24 08:20] LABS: BG BASE EXCESS 2.8 mmol/L (-2.0-2.0); BG CARBOXYHEMOGLOBIN 0.2 % (0.5-1.5); BG DEOXYHEMOGLOBIN 1.4 % (0.0-5.0); BG FRACTION INSPIRED OXYGEN 100; BG HCO3 ACT 25.4 mmol/L (22.0-26.0); BG METHEMOGLOBIN 0.3 % (0.0-1.5); BG OXYGEN SATURATION 98.6 % (92.0-98.5); BG OXYHEMOGLOBIN 98.1 % (94.0-97.0); BG PCO2 31.8 mmHg (35.0-45.0); BG PH 7.521 (7.350-7.450); BG PO2 215.5 mmHg (75.0-100.0); BG SAMPLE SITE RIGHT RADIAL; BG TOTAL HEMOGLOBIN 9.7 g/dL (12.0-18.0); BG VENT MODE VENT - APRV
[2020-09-24] MEDS: DEXAMETHASONE 4MG/ML 1ML VIAL IV SCH ×2 (08:28→20:50)
[2020-09-24] MEDS: PREGABALIN 75MG CAPSULE PO SCH ×2 (08:28→20:50)
[2020-09-24] MEDS: LOSARTAN POTASSIUM 50 MG TABLET PO SCH (08:28)
[2020-09-24] MEDS: CEFEPIME 1,000 MG in DEXTROSE 5% WATER 50 ML IV SCH ×2 (08:28→20:34)
[2020-09-24] MEDS: LEVETIRACETAM 500MG PREMIX 100 ML IV SCH ×2 (08:28→20:51)
[2020-09-24] MEDS: NIFEDIPINE XL 90MG TAB PO SCH (08:29)
[2020-09-24] MEDS: MINOXIDIL 2.5MG TABLET PO SCH (08:29)
[2020-09-24] MEDS: DEXT 5%/0.9% NACL 1,000 ML IV SCH (09:23)
[2020-09-24 11:05] LABS: INR 1.6; PARTIAL THROMBOPLASTIN TIME 48.7 sec (23.4-31.0); PROTHROMBIN TIME 16.1 sec (9.6-11.0)
[2020-09-24] MEDS ORDERED: LACTULOSE 20G/30ML UDC PO PRN (12:15)
[2020-09-24] MEDS ORDERED: PHYTONADIONE 10MG/ML AMP SUBCUT NR (12:15)
[2020-09-24] MEDS: SUCRALFATE 1 G/10 ML UDC PO SCH ×3 (14:03→23:37)
[2020-09-24] MEDS ORDERED: FLUCONAZOLE/NS(NEO) 2MG/ML IVPB IV SCH (15:00)
[2020-09-24 15:11] LABS: HEMATOCRIT 29.5 % (36.0-48.0); HEMOGLOBIN 10.1 g/dL (12.0-16.0); MEAN CORPUSCULAR HEMOGLOBIN 29.2 pg (28.0-32.0); MEAN CORPUSCULAR VOLUME 85.2 fL (81.0-99.0); PLATELET 74 x1000/uL (130-400); RED BLOOD CELL COUNT 3.46 mill/uL (4.2-5.4)
[2020-09-24 15:20] LABS: INR 1.6; PROTHROMBIN TIME 16.4 sec (9.6-11.0)
[2020-09-24 16:30] LABS: NUCLEATED RED BLOOD CELLS 2 /100 WBC; PLATELET ESTIMATE DECREASED
[2020-09-24] MEDS ORDERED: FLUCONAZOLE 200 MG/100ML BAG 100 ML IV SCH (17:00)
[2020-09-24] MEDS: MICAFUNGIN 100 MG in SODIUM CHLORIDE 0.9% 100 ML IV SCH (20:34)
[2020-09-24 22:12] LABS: HEMATOCRIT 29.6 % (36.0-48.0); HEMOGLOBIN 10.5 g/dL (12.0-16.0); MEAN CORPUSCULAR HEMOGLOBIN 30.1 pg (28.0-32.0); MEAN CORPUSCULAR VOLUME 85.3 fL (81.0-99.0); PLATELET 55 x1000/uL (130-400); RED BLOOD CELL COUNT 3.48 mill/uL (4.2-5.4)
[2020-09-25] VITALS (80 sets, daily range): BP systolic -2–137; BP diastolic -2–74
[2020-09-25] MEDS: PHENYLEPHRINE 100 MG in DEXT 5% WATER 240 ML IV PRN ×4 (00:12→20:59)
[2020-09-25] MEDS: ALBUTEROL (0.083%) 2.5MG/3ML NEB HHN SCH ×4 (02:06→20:42)
[2020-09-25] MEDS: PANTOPRAZOLE 80 MG in SODIUM CHLORIDE 0.9% 100 ML IV SCH ×2 (03:35→11:25)
[2020-09-25] MEDS: SUCRALFATE 1 G/10 ML UDC PO SCH ×3 (05:01→18:00)
[2020-09-25] MEDS: CLONIDINE 0.3MG TABLET PO SCH (05:01)
[2020-09-25 05:56] LABS: PHOSPHORUS 6.1 mg/dL (2.5-4.9)
[2020-09-25] MEDS ORDERED: CALCIUM GLUCONATE 1GM PREMIX 50 ML IV ONE (08:00)
[2020-09-25] MEDS ORDERED: SODIUM POLYSTYRENE SULFONATE 15 G/60 ML BOT PO NR ×2 (08:30→09:00)
[2020-09-25] MEDS: CEFEPIME 1,000 MG in DEXTROSE 5% WATER 50 ML IV SCH ×2 (08:55→20:54)
[2020-09-25] MEDS: DEXAMETHASONE 4MG/ML 1ML VIAL IV SCH ×2 (08:56→20:55)
[2020-09-25] MEDS: PREGABALIN 75MG CAPSULE PO SCH ×2 (08:57→20:55)
[2020-09-25] MEDS: DEXT 5%/0.9% NACL 1,000 ML IV SCH (08:58)
[2020-09-25] MEDS: LEVETIRACETAM 500MG PREMIX 100 ML IV SCH ×2 (08:58→20:55)
[2020-09-25] MEDS ORDERED: PHYTONADIONE 10MG/ML AMP SUBCUT NR (09:00)
[2020-09-25 09:19] LABS: HEMATOCRIT. 30.1 % (36.0-48.0); HEMOGLOBIN. 10.1 g/dL (12.0-16.0); MEAN CORPUSCULAR HEMOGLOBIN 29.3 pg (28.0-32.0); MEAN PLATELET VOLUME 9.2 fl (7.4-10.4); RED BLOOD CELL COUNT 3.46 mill/uL (4.2-5.4); RED CELL DISTRIBUTION WIDTH 15.3 % (11.6-14.6)
[2020-09-25 09:50] LABS: PLATELET 36 x1000/uL (130-400)
[2020-09-25 13:11] LABS: PLATELET ESTIMATE MARKEDLY DECREASED
[2020-09-25 17:52] LABS: HEMOGLOBIN 9.1 g/dL (12.0-16.0); MEAN CORPUSCULAR HEMOGLOBIN 29.2 pg (28.0-32.0); MEAN CORPUSCULAR VOLUME 86.7 fL (81.0-99.0); PLATELET 67 x1000/uL (130-400); RED BLOOD CELL COUNT 3.11 mill/uL (4.2-5.4); RED CELL DISTRIBUTION WIDTH 15.4 % (11.6-14.6)
[2020-09-25] MEDS: MICAFUNGIN 100 MG in SODIUM CHLORIDE 0.9% 100 ML IV SCH (20:54)
[2020-09-25] MEDS: ACETAMINOPHEN 650MG/20.3ML UDC PO PRN (21:15)
[2020-09-26] VITALS (117 sets, daily range): BP systolic 3–175; BP diastolic 3–100
[2020-09-26] MEDS: DEXT 5%/0.9% NACL 1,000 ML IV SCH ×2 (01:09→10:05)
[2020-09-26] MEDS: PHENYLEPHRINE 100 MG in DEXT 5% WATER 240 ML IV PRN ×5 (01:10→22:53)
[2020-09-26] MEDS: PANTOPRAZOLE 80 MG in SODIUM CHLORIDE 0.9% 100 ML IV SCH ×3 (01:10→14:39)
[2020-09-26] MEDS: ALBUTEROL (0.083%) 2.5MG/3ML NEB HHN SCH ×2 (01:50→08:16)
[2020-09-26] MEDS: NOREPINEPHRINE 32 MG in DEXT 5% WATER 218 ML IV PRN (02:55)
[2020-09-26 05:20] LABS: CHLORIDE 97 mEq/L (98-107)
[2020-09-26 05:24] LABS: HEMATOCRIT. 25.4 % (36.0-48.0); HEMOGLOBIN. 8.5 g/dL (12.0-16.0); MEAN CORPUSCULAR HEMOGLOBIN 29.7 pg (28.0-32.0); MEAN CORPUSCULAR VOLUME 88.9 fL (81.0-99.0); MEAN PLATELET VOLUME 9.6 fl (7.4-10.4); RED BLOOD CELL COUNT 2.86 mill/uL (4.2-5.4); RED CELL DISTRIBUTION WIDTH 15.7 % (11.6-14.6)
[2020-09-26 05:25] LABS: PHOSPHORUS 6.1 mg/dL (2.5-4.9)
[2020-09-26 05:37] LABS: PLATELET 32 x1000/uL (130-400)
[2020-09-26] MEDS: CEFEPIME 1,000 MG in DEXTROSE 5% WATER 50 ML IV SCH ×2 (08:49→20:27)
[2020-09-26] MEDS: DEXAMETHASONE 4MG/ML 1ML VIAL IV SCH ×2 (08:49→20:27)
[2020-09-26] MEDS: LEVETIRACETAM 500MG PREMIX 100 ML IV SCH ×2 (08:49→21:31)
[2020-09-26] MEDS: PREGABALIN 75MG CAPSULE PO SCH ×2 (08:49→20:27)
[2020-09-26] MEDS ORDERED: ALBUMIN HUMAN 12.5GM/50ML (25%) IV SCH (09:00)
[2020-09-26 09:10] LABS: BG BASE EXCESS -2.4 mmol/L (-2.0-2.0); BG CARBOXYHEMOGLOBIN 0.3 % (0.5-1.5); BG DEOXYHEMOGLOBIN 7.4 % (0.0-5.0); BG FRACTION INSPIRED OXYGEN 65; BG HCO3 ACT 23.1 mmol/L (22.0-26.0); BG METHEMOGLOBIN 0.3 % (0.0-1.5); BG OXYGEN SATURATION 92.6 % (92.0-98.5); BG PCO2 42.8 mmHg (35.0-45.0); BG PO2 70.2 mmHg (75.0-100.0); BG SAMPLE SITE RIGHT RADIAL; BG TOTAL HEMOGLOBIN 8.7 g/dL (12.0-18.0); BG TOTAL RESPIRATORY RATE 24 b/min; BG VENT MODE VENT - AC
[2020-09-26 09:16] LABS: PLATELET ESTIMATE MARKEDLY DECREASED
[2020-09-26] MEDS: SUCRALFATE 1 G/10 ML UDC PO SCH ×2 (12:00→17:36)
[2020-09-26] MEDS: IPRATROPIUM/ALBUTEROL 0.5-3(2.5)MG/3ML NEB HHN PRN (12:04)
[2020-09-26] MEDS: CLONIDINE 0.3MG TABLET PO SCH (14:00)
[2020-09-26] MEDS: MICAFUNGIN 100 MG in SODIUM CHLORIDE 0.9% 100 ML IV SCH (20:27)
[2020-09-27] VITALS (59 sets, daily range): BP systolic 75–183; BP diastolic 33–141
[2020-09-27] MEDS: ALBUTEROL (0.083%) 2.5MG/3ML NEB HHN SCH ×2 (00:04→08:11)
[2020-09-27] MEDS: PANTOPRAZOLE 80 MG in SODIUM CHLORIDE 0.9% 100 ML IV SCH (01:07)
[2020-09-27] MEDS: PHENYLEPHRINE 100 MG in DEXT 5% WATER 240 ML IV PRN (03:33)
[2020-09-27] MEDS: CLONIDINE 0.3MG TABLET PO SCH (06:00)
[2020-09-27] MEDS: SUCRALFATE 1 G/10 ML UDC PO SCH (06:40)
[2020-09-27] MEDS: PREGABALIN 75MG CAPSULE PO SCH (09:01)
[2020-09-27] MEDS: DEXAMETHASONE 4MG/ML 1ML VIAL IV SCH (09:01)
[2020-09-27] MEDS: CEFEPIME 1,000 MG in DEXTROSE 5% WATER 50 ML IV SCH (09:01)
[2020-09-27] MEDS: LEVETIRACETAM 500MG PREMIX 100 ML IV SCH (09:01)
[2020-09-27 09:06] LABS: SACCHAROMYCES CEREVISIAE IGG <20.0 Units (0.0-24.9); SACCHAROMYCES CEREVISIAE IGM <20.0 Units (0.0-24.9)
[2020-09-27 09:20] LABS: MEAN CORPUSCULAR HEMOGLOBIN 29.5 pg (28.0-32.0); MEAN CORPUSCULAR VOLUME 93.2 fL (81.0-99.0); MEAN PLATELET VOLUME 8.5 fl (7.4-10.4); RED BLOOD CELL COUNT 1.73 mill/uL (4.2-5.4); RED CELL DISTRIBUTION WIDTH 16.8 % (11.6-14.6)
[2020-09-27 09:43] LABS: BG BASE EXCESS -14.9 mmol/L (-2.0-2.0); BG CARBOXYHEMOGLOBIN 1.2 % (0.5-1.5); BG DEOXYHEMOGLOBIN 48.2 % (0.0-5.0); BG FRACTION INSPIRED OXYGEN 100; BG HCO3 ACT 14.3 mmol/L (22.0-26.0); BG METHEMOGLOBIN 0.5 % (0.0-1.5); BG OXYHEMOGLOBIN 50.1 % (94.0-97.0); BG PH 7.041 (7.350-7.450); BG PO2 36.3 mmHg (75.0-100.0); BG SAMPLE SITE LEFT RADIAL; BG TOTAL HEMOGLOBIN 5.6 g/dL (12.0-18.0); BG TOTAL RESPIRATORY RATE 24 b/min; BG VENT MODE VENT - AC
[2020-09-27 09:46] LABS: PHOSPHORUS 8.4 mg/dL (2.5-4.9)
[2020-09-27 09:51] LABS: HEMOGLOBIN. 5.1 g/dL (12.0-16.0)
[2020-09-27 09:52] LABS: HEMATOCRIT. 16.1 % (36.0-48.0); PLATELET 46 x1000/uL (130-400)
[2020-09-27 10:07] LABS: BG BASE EXCESS -16.3 mmol/L (-2.0-2.0); BG DEOXYHEMOGLOBIN 3.3 % (0.0-5.0); BG FRACTION INSPIRED OXYGEN 100; BG HCO3 ACT 12.2 mmol/L (22.0-26.0); BG METHEMOGLOBIN 0.4 % (0.0-1.5); BG OXYGEN SATURATION 96.7 % (92.0-98.5); BG OXYHEMOGLOBIN 95.3 % (94.0-97.0); BG PCO2 42.5 mmHg (35.0-45.0); BG PH 7.076 (7.350-7.450); BG PO2 117.1 mmHg (75.0-100.0); BG SAMPLE SITE LEFT RADIAL; BG TOTAL HEMOGLOBIN 5.4 g/dL (12.0-18.0); BG TOTAL RESPIRATORY RATE 24 b/min; BG VENT MODE VENT - AC
[2020-09-27 11:39] LABS: NUCLEATED RED BLOOD CELLS 1 /100 WBC; PLATELET ESTIMATE MARKEDLY DECREASED
[2020-09-27 13:11] LABS: ATYPICAL pANCA <1:20 titer (Neg:<1:20)
== END 2020-09-27 16:11 | DRG 25 ==
LOC: ER 09:44 → EDBEDREQ 17:22 → MICUSO 19:48 → EDBEDREQ 19:50 → EDBEDREQSVC 19:50 → EDBEDREQTM 19:50 → 5EST 09-08 07:22 → MICUNO 09-09 15:10 → 8WST 09-19 12:34 → MICUSO 09-22 05:48
PROVIDERS: ADMIT Family Medicine; ATTEND Family Medicine
PROC: 05H433Z Insertion of Infusion Device into Left Innominate Vein, Percutaneous Approach (ICD-10-PCS; 2020-09-10)
PROC: B54NZZA Ultrasonography of Left Upper Extremity Veins, Guidance (ICD-10-PCS; 2020-09-10)
PROC: 00B10ZZ Excision of Cerebral Meninges, Open Approach (ICD-10-PCS; principal; 2020-09-11)
PROC: 00H632Z Insertion of Monitoring Device into Cerebral Ventricle, Percutaneous Approach (ICD-10-PCS; 2020-09-11)
PROC: 00U207Z Supplement Dura Mater with Autologous Tissue Substitute, Open Approach (ICD-10-PCS; 2020-09-11)
PROC: 4A103BD Monitoring of Intracranial Pressure, Percutaneous Approach (ICD-10-PCS; 2020-09-11)
PROC: 30233N1 Transfusion of Nonautologous Red Blood Cells into Peripheral Vein, Percutaneous Approach (ICD-10-PCS; 2020-09-22)
PROC: 30233R1 Transfusion of Nonautologous Platelets into Peripheral Vein, Percutaneous Approach (ICD-10-PCS; 2020-09-22)
PROC: 0BH17EZ Insertion of Endotracheal Airway into Trachea, Via Natural or Artificial Opening (ICD-10-PCS; 2020-09-22)
PROC: 5A1955Z Respiratory Ventilation, Greater than 96 Consecutive Hours (ICD-10-PCS; 2020-09-22)
PROC: 30233K1 Transfusion of Nonautologous Frozen Plasma into Peripheral Vein, Percutaneous Approach (ICD-10-PCS; 2020-09-23)
PROC: 05HM33Z Insertion of Infusion Device into Right Internal Jugular Vein, Percutaneous Approach (ICD-10-PCS; 2020-09-23)
PROC: B543ZZA Ultrasonography of Right Jugular Veins, Guidance (ICD-10-PCS; 2020-09-23)
PROC: 009630Z Drainage of Cerebral Ventricle with Drainage Device, Percutaneous Approach (ICD-10-PCS; 2020-09-24)
DX: D32.0 Benign neoplasm of cerebral meninges (principal); A41.59 Other Gram-negative sepsis; G93.6 Cerebral edema; E43 Unspecified severe protein-calorie malnutrition; G82.50 Quadriplegia, unspecified; J69.0 Pneumonitis due to inhalation of food and vomit; J96.01 Acute respiratory failure with hypoxia; R65.21 Severe sepsis with septic shock; I63.9 Cerebral infarction, unspecified; K72.00 Acute and subacute hepatic failure without coma; I61.5 Nontraumatic intracerebral hemorrhage, intraventricular; J96.02 Acute respiratory failure with hypercapnia; N17.0 Acute kidney failure with tubular necrosis; D69.3 Immune thrombocytopenic purpura; N39.0 Urinary tract infection, site not specified; E87.0 Hyperosmolality and hypernatremia; E87.4 Mixed disorder of acid-base balance; G91.9 Hydrocephalus, unspecified; Z68.42 Body mass index [BMI] 45.0-49.9, adult; G93.1 Anoxic brain damage, not elsewhere classified; K50.90 Crohn's disease, unspecified, without complications; K92.1 Melena; B49 Unspecified mycosis; E66.01 Morbid (severe) obesity due to excess calories; B96.4 Proteus (mirabilis) (morganii) as the cause of diseases classified elsewhere; D64.9 Anemia, unspecified; I11.9 Hypertensive heart disease without heart failure; N28.1 Cyst of kidney, acquired; R29.6 Repeated falls; Z20.822 Contact with and (suspected) exposure to COVID-19; E78.5 Hyperlipidemia, unspecified; E11.40 Type 2 diabetes mellitus with diabetic neuropathy, unspecified; M47.812 Spondylosis without myelopathy or radiculopathy, cervical region; I46.9 Cardiac arrest, cause unspecified; Z66 Do not resuscitate; Z74.01 Bed confinement status; Z79.01 Long term (current) use of anticoagulants; Z86.718 Personal history of other venous thrombosis and embolism; Z79.84 Long term (current) use of oral hypoglycemic drugs; Z79.899 Other long term (current) drug therapy; Z82.49 Family history of ischemic heart disease and other diseases of the circulatory system; Z83.3 Family history of diabetes mellitus; Z86.711 Personal history of pulmonary embolism; Z88.9 Allergy status to unspecified drugs, medicaments and biological substances; Z91.81 History of falling; Z88.8 Allergy status to other drugs, medicaments and biological substances; D63.8 Anemia in other chronic diseases classified elsewhere
CPT/HCPCS: 31500; 36415; 36600; 70553; 71045; 72192; 74018; 76700; 76770; 76937; 78580; 78610; 80048; 80053; 80076; 80202; 81003; 82140; 82248; 82375; 82550; 82607; 82728; 82746; 82805; 82962; 83540; 83550; 83735; 84100; 84145; 84478; 84484; 85025; 85027; 85049; 85362; 85384; 86038; 86256; 86671; 86850; 86900; 86920; 86927; 87070; 87077; 87106; 87186; 87426; 88305; 88331; 92610; 92950; 93005; 93970; 94003; 94640; 97110; 97162; 97166; 97530; 97535; 99285; A6261; A9512; A9577; C1713; C1725; C9113; J0330; J0360; J0610; J0690; J0692; J0696; J1100; J1450; J1644; J1940; J1953; J2248; J2250; J2270; J2370; J2405; J2704; J2710; J3010; J3370; J3430; J3490; J7030; J7040; J7042; J7050; J7060; J7070; J7120; J8540; P9016; P9017; P9034; P9047; A4315